=== PATIENT | male | born 2000 | race Caucasian/White ===

== ENCOUNTER 2022-04-06 09:16 | Outpatient (CLI) | payer BC | END 2022-04-06 09:17 | disposition home or self-care (01) | LOC: BICMRI 09:16 | PROVIDERS: ATTEND Orthopaedic Surgery | DX: M25.552 Pain in left hip (principal) ==

== ENCOUNTER 2022-04-25 08:21 | Outpatient (CLI) | payer BC | END 2022-04-25 08:22 | disposition home or self-care (01) | LOC: BICMRI 08:21 | PROVIDERS: ATTEND Orthopaedic Surgery | DX: M54.32 Sciatica, left side (principal) | CPT/HCPCS: 72148 ==